=== PATIENT | male | born 1955 | race Caucasian/White ===

== ENCOUNTER 2018-07-08 22:08 | Emergency (ER) | payer SELFPAY ==
[2018-07-08] MEDS: EPINEPHrine 1:10,000 1 MG/10 ML Syringe IVPUSH PRN ×2 (22:09→22:13)
[2018-07-08] MEDS ORDERED: Calcium Chloride 10% 1 GM/10 ML Syringe IVPUSH ONE (22:14)
--- NOTE | 2018-07-08 22:39 | EDM.PDOC ---
ED HPI GENERAL MEDICAL PROBLEM - General Stated Complaint: CODE 100 Time Seen by Provider: 07/08/18 22:08 Source of Information: Reports: EMS History Limitations: Reports: Other (cardiac arrest intubated 04/02 endotracheal tube 24th lips Ramez running and fixed pupils that were fixed pupils in the field per paramedics.[facility] received the call at 21:35 that the patient had been down since 2129. No one knew the name of this patient (at 22:46 I was informed his name is Howard Hooker BD [id number]) . 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 He then slumped to the ground and CPR was started by first responders in less than a minute. The police and fire department and first responders continued CPR until paramedics arrived at approximately 21:40. Accu-Chek's was 150, IV was placed IV line started and patient was intubated. When he arrived ED at 2205 he had pupils were fixed at 5 mm had acrocyanosis his lower extremities with cutaneous [place]ar[place] and cold feet no brachial, no carotid or femoral pulses noted, endotracheal tube intact and good air exchange noted bilaterally lung bases on auscultation, patient when Ramez was stopped. It was no return of circulation multiple checks at 2 minute intervals. Resuscitation stopped and time of was 22:17.) - History of Present Illness INITIAL COMMENTS - FREE TEXT/NARRATIVE: See above ED ROS GENERAL - Review of Systems Review Of Systems: Unable To Obtain ED EXAM, CPR - Physical Exam Exam: See Below Text/Narrative:: Primary survey A good air exchange endotracheal tube in place bilateral lung sounds at bases anteriorly endotracheal tube at 24 cm at the lips. Ramez actively compressing his chest stool sample. Respiratory rate and good air exchange lungs B IR breast sounds with equal expansion of the chest C Asystole ,no electrical rhythm when Ramez stopped after 2 minute Ramez CPR; 20 second check no pulses D Cathy Coma Scale 3 E Cutaneous murmur IO in place left anterior tibia perfusing appropriately Secondary survey ENT pupils flex and 5 L tracheal tube in place mild cyanosis left lungs clear to auscultation Ramez compressing chest dose(wound soft no masses returned negative circumcised extremities negative except for absent dorsalis pedis pulses reflexes Code was called at 22:17 Also cardiac arrest Departure - Departure Time of Disposition: 22:17 (Was called at 21/11/16 was down total approximately 47 minutes) Disposition: 20 Preliminary Cause of *Q: Other_Special Instruction (Cardiac arrest) Clinical Impression: Cardiac arrest - Discharge Information *PRESCRIPTION DRUG MONITORING PROGRAM REVIEWED*: Not Applicable *COPY OF PRESCRIPTION DRUG MONITORING REPORT IN PATIENT NIYAH: Not Applicable
[2018-07-08] MEDS ORDERED: EPINEPHrine 1 MG/ML 30 ML MDV IVPUSH PRN (23:43)
== END 2018-07-08 22:17 | disposition expired ==
LOC: FB.ED 22:08
DX: I46.9 Cardiac arrest, cause unspecified (principal)
CPT/HCPCS: 92950; 96374; 96375; 99285; J0171